=== PATIENT | female | born 1985 | race Caucasian/White ===

== ENCOUNTER 2017-11-19 12:18 | Inpatient (IN) | payer OTHER ==
[2017-11-19] VITALS (10 sets, daily range): BP systolic 132–152; BP diastolic 73–95
[~2017-11-19] VITALS: Ht 172.7 cm; Wt 116.7 kg
[2017-11-19] MEDS: MORPHINE SULFATE 2 MG/ML VIAL. IV PRN ×2 (13:48→19:23)
[2017-11-19] MEDS: IV NORMAL SALINE 1000ML BAG 1,000 ML IV SCH (13:48)
[2017-11-19] MEDS ORDERED: CETIRIZINE HCL 10 MG TABLET. PO STA (14:51)
--- NOTE | 2017-11-19 14:51 | PDOC ---
PULMONARY PROGRESS NOTES Vitals Vital Signs Date Time Temp Pulse Resp B/P (MAP) Pulse Ox O2 Delivery O2 Flow Rate FiO2 11/19/17 14:07 Room Air 11/19/17 14:00 98.4 86 18 150/90 (110) 98 98.4 Impression . MAST CELL MEDIATED ANGIOEDEMA SEE ORDERS THANKS RESP STATUS IS COMPENSATED PT FEELS BETTER SINCE RECEIVING TREATMENT IN ER AT [facility] SIRIA OLSON MD Nov 19, 2017 14:51
[2017-11-19] MEDS ORDERED: ALBUTEROL SULFATE 2.5 MG/3 ML NEBU. NEB PRN (15:00)
[2017-11-19] MEDS ORDERED: predniSONE 10 MG TABLET PO ONE (15:00)
[2017-11-19] MEDS: MORPHINE SULFATE 4 MG/ML VIAL. IV PRN ×2 (16:35→22:18)
[2017-11-19] MEDS ORDERED: FLUCONAZOLE 100 MG TABLET. PO ONE (17:30)
[2017-11-19] MEDS: CLINDAMYCIN INJ 300 MG in IV DEXTROSE 5% 50 ML IV SCH ×2 (17:32→21:49)
[2017-11-19] MEDS ORDERED: oxyCODONE/APAP 5/325 1 TAB TABLET PO PRN (20:45)
[2017-11-19] MEDS: FAMOTIDINE 20 MG TABLET. PO SCH (21:48)
--- NOTE | 2017-11-19 22:43 | CONS ---
DATE OF CONSULTATION: 11/19/2017 ATTENDING PHYSICIAN: Dr. Winkler. REASON FOR CONSULTATION: The patient is seen in pulmonary consultation for possible angioedema. HISTORY OF PRESENT ILLNESS: The patient is a 32-year-old who has a history of ALLERGIES TO EGGS, she has been avoiding eggs. She had a toothache several days ago, went to see her dentist. She apparently had an anesthetic injection. Then, she woke up this morning with a swollen tongue. She was having no difficulty breathing. She was able to swallow own saliva. She was seen in [facility] ER and was transferred to the Intensive Care Unit for further evaluation and management. The patient does not utilize any metered dose inhaler. She has never had asthma. She has had no formal allergy testing. She does not carry EpiPen. She does not utilize daily antihistamines. During my evaluation, she was able to stick out her tongue. She was able to complete full sentences. There was no upper airway stridor. The patient was not wheezing. She did not have an elevated respiratory rate. She actually states that she felt better. She had been given some Solu-Medrol, Benadryl, and Pepcid. PAST MEDICAL HISTORY: Otherwise just remarkable for EGG ALLERGIES. She does not take any antihypertensive medications. PAST SURGICAL HISTORY: None. ALLERGIES: EGGS. REVIEW OF SYSTEMS: As indicated above, otherwise a 10-point system was reviewed and negative. PHYSICAL EXAMINATION: VITAL SIGNS: Stable. O2 saturation was greater than 92% on room air. GENERAL: The patient was in no respiratory distress. HEENT: Eyes, the sclerae were nonicteric. NECK: Jugular venous distention was not elevated. No lymphadenopathy. No stridor, no audible wheezes. CHEST: Full expansion. LUNGS: Adequate airway flow with no wheezes, rales or rhonchi. CARDIOVASCULAR: Regular rate and rhythm with S1, S2, no S3. ABDOMEN: Soft, nontender, nondistended. EXTREMITIES: No clubbing, cyanosis or edema. NEUROLOGIC: The patient was awake, alert, following commands. A detailed neuro exam was not performed. SKIN: Revealed no evidence of any skin lesions or urticaria. LABORATORY DATA: From [facility] Emergency Room were reviewed. IMPRESSION: 1. Mast cell mediated angioedema, more than likely related to food allergy. 2. History of ALLERGIES TO EGGS. PLAN: 1. We will continue current support with steroids and antihistamines. 2. The patient will be given a prescription for EpiPen upon discharge. 3. Recommend daily Zyrtec. 4. The patient to follow up in the Allergy Clinic at [facility] once discharged. I do appreciate the privilege in sharing in the patient's care. SIRIA OLSON MD DR: LEEANN/spring JOB#: [id number] / [id number]
[2017-11-19] MEDS ORDERED: methylPREDNISolone SOD SUCC PF 125 MG/2 ML VIAL. IV ONE (23:00)
--- NOTE | 2017-11-19 23:48 | PDOC1 ---
History and Physical History of Present Illness History of Present Illness HPI: 32-year-old with tooth pain pw tongue swelling from OSH. Woke up this am with tongue. swelling which progressively got worse. Was in the dentists office when noted to be wheezing Noted to receive solumderol, PPI, and Benadryl Tx to ICU fro further eval. All to eggs only. Speaking full sentences wants to eat Current Medications Current Medications Current Medications Medications (Trade) Dose Ordered Sig/Ramy Start Time Stop Time Status Last Admin Dose Admin Albuterol Sulfate (Ventolin Neb Soln) 2.5 mg PRN Q2HR PRN 11/19/17 15:00 Cetirizine HCl (ZyrTEC) 10 mg 1X STAT 11/19/17 14:51 11/19/17 14:56 DC 11/19/17 17:33 10 MG Clindamycin Phosphate 300 mg/ Dextrose 52 ml @ 104 mls/hr Q8HRS 11/19/17 16:30 11/19/17 21:49 104 MLS/HR Famotidine (Pepcid) 20 mg BID 11/19/17 21:00 11/19/17 21:48 20 MG Fluconazole (Diflucan) 150 mg 1X ONCE 11/19/17 17:30 11/19/17 17:31 DC 11/19/17 17:33 150 MG Methylprednisolone Sodium Succinate (SOLU-Medrol 125MG VIAL) 62.5 mg 1X ONCE 11/19/17 23:00 11/19/17 23:01 DC 11/19/17 23:07 62.5 MG Morphine Sulfate (Morphine Sulfate) 4 mg PRN Q2HR PRN 11/19/17 16:15 11/19/17 22:18 4 MG Oxycodone/ Acetaminophen (Percocet 5/325) 2 tab PRN Q4HRS PRN 11/19/17 22:45 Prednisone (Prednisone) 20 mg DAILY 11/20/17 09:00 Sodium Chloride 1,000 ml @ 100 mls/hr Q10H 11/19/17 14:00 11/19/17 13:48 100 MLS/HR Allergies Allergies Allergies Coded Allergies Type Severity Reaction Last Updated Verified egg Allergy Intermediate Anaphylaxis 11/19/17 Yes ROS Review of System CONSTITUTIONAL: No fever or chills EYES: No recent changes SKIN: No rash or itching CARDIOVASCULAR: No chest pain, syncope, palpitations, or edema RESPIRATORY: No SOB or cough GASTROINTESTINAL: No nausea, vomiting or abdominal pain NEUROLOGICAL: No headaches or weakness ENDOCRINE: No cold or heat intolerance GENITOURINARY: No urgency or frequency of urination MUSCULOSKELETAL: No back pain or joint pain LYMPHATICS: No enlarged lymph nodes PSYCHIATRIC: No anxiety or depression Physical Exam Physical Exam GEN.: No apparent distress. Alert and oriented. HEENT: Head is normocephalic, atraumatic NECK: Supple. LUNGS: Clear to auscultation. HEART: RRR, S1, S2 present. Peripheral pulses intact ABDOMEN: Soft, nontender. Positive bowel sounds. EXTREMITIES: Without any cyanosis. NEUROLOGIC: Normal speech, normal tone PSYCHIATRIC: Normal affect, normal mood. SKIN: No ulcerations Vitals Vitals Vital Signs Date Time Temp Pulse Resp B/P (MAP) Pulse Ox O2 Delivery O2 Flow Rate FiO2 11/19/17 23:40 Room Air 11/19/17 23:00 98.3 100 16 151/73 (99) 99 98.3 VTE Prophylaxis Ordered VTE Prophylaxis Devices: No VTE Pharmacological Prophylaxi: No Assessment/Plan Assessment/Plan Tongue swelling Tooth pain Pulm c/s PPI, Steroids, Anbx, H2 nayeli ROSANNA PRYOR MD Nov 19, 2017 23:48
[2017-11-20] VITALS (12 sets, daily range): BP systolic 123–169; BP diastolic 70–97
[2017-11-20] MEDS: oxyCODONE/APAP 5/325 1 TAB TABLET PO PRN ×3 (00:46→09:41)
[2017-11-20] MEDS: IV NORMAL SALINE 1000ML BAG 1,000 ML IV SCH (00:46)
[2017-11-20] MEDS: CLINDAMYCIN INJ 300 MG in IV DEXTROSE 5% 50 ML IV SCH (05:32)
[2017-11-20] MEDS ORDERED: CETIRIZINE HCL 10 MG TABLET. PO SCH (09:00)
[2017-11-20] MEDS ORDERED: predniSONE 20 MG TABLET PO SCH (09:00)
[2017-11-20] MEDS: FAMOTIDINE 20 MG TABLET. PO SCH (09:15)
[2017-11-20] MEDS ORDERED: CLIN300C8 PO (11:43)
[2017-11-20] MEDS ORDERED: FAMO-63 PO (11:44)
[2017-11-20] MEDS ORDERED: HYDR-2758 PO (11:44)
[2017-11-20] MEDS ORDERED: DIPH25CA58 PO (11:45)
[2017-11-20] MEDS ORDERED: METH4TAB2 PO (11:45)
[2017-11-20] MEDS ORDERED: EPIPEN0.3 MG/0.3 IJ (11:45)
--- NOTE | 2017-11-20 12:27 | PDOC ---
PROGRESS NOTES Chief Complaint Chief Complaint Allergic reaction w/ angioedema of tongue tooth pain History of Present Illness History of Present Illness pt seen and examined pt complains of itchy, is alert and pleasant dw/ RN Vitals Vitals Vital Signs Date Time Temp Pulse Resp B/P (MAP) Pulse Ox O2 Delivery O2 Flow Rate FiO2 11/20/17 11:00 92 16 155/90 (111) 99 Room Air 11/20/17 08:00 98.0 98.0 Physical Exam General: Alert, Oriented X3, Cooperative Heart: Regular rate, Normal S1, Normal S2 Lungs: Clear Abdomen: Normal bowel sounds, Soft Extremities: No clubbing, No cyanosis Skin: No rashes, No breakdown Review of Systems Review of Systems CO hunger CO fatigue Assessment and Plan Assessmemt and Plan Allergic reaction w/ angioedema of tongue tooth pain Plan: pt approaching baseline discharge with steroids, PPI, Benadryl, and Clindamycin Prescribed epi. pen Comment Review of Relevant I have reviewed the following items gokul (where applicable) has been applied. Medications Current Medications Sodium Chloride 1,000 ml @ 100 mls/hr Q10H IV Last administered on 11/20/17at 00:46; Start 11/19/17 at 14:00; Stop 11/20/17 at 09:46; Status DC Morphine Sulfate (Morphine Sulfate) 2 mg PRN Q2HR PRN IV MODERATE PAIN Last administered on 11/19/17at 19:23; Start 11/19/17 at 13:45 Cetirizine HCl (ZyrTEC) 10 mg DAILY PO Last administered on 11/20/17 09:16; Start 11/20/17 at 09:00 Cetirizine HCl (ZyrTEC) 10 mg 1X STAT PO Last administered on 11/19/17at 17:33 ; Start 11/19/17 at 14:51; Stop 11/19/17 at 14:56; Status DC Prednisone (Prednisone) 30 mg 1X ONCE PO Last administered on 11/19/17 17:33 ; Start 11/19/17 at 15:00; Stop 11/19/17 at 15:01; Status DC Prednisone (Prednisone) 20 mg DAILY PO Last administered on 11/20/17at 09:15; Start 11/20/17 at 09:00 Famotidine (Pepcid) 20 mg BID PO Last administered on 9/30/18at 09:15; Start at 21:00 Albuterol Sulfate (Ventolin Neb Soln) 2.5 mg PRN Q2HR PRN NEB DYSPNEA; Start at 15:00 Morphine Sulfate (Morphine Sulfate) 4 mg PRN Q2HR PRN IV SEVERE PAIN Last administered on 11/19/17at 22:18; Start 11/19/17 at 16:15 Clindamycin Phosphate 300 mg/ Dextrose 52 ml @ 104 mls/hr Q8HRS IV Last administered on 11/20/17at 05:32; Start 11/19/17 at 16:30 Fluconazole (Diflucan) 150 mg 1X ONCE PO Last administered on 11/19/17at 17:33 ; Start 11/19/17 at 17:30; Stop 11/19/17 at 17:31; Status DC Oxycodone/ Acetaminophen (Percocet 5/325) 1 tab PRN Q4HRS PRN PO PAIN Last administered on 11/19/17at 20:50; Start 11/19/17 at 20:45; Stop 11/19/17 at 22:45 ; Status DC Oxycodone/ Acetaminophen (Percocet 5/325) 2 tab PRN Q4HRS PRN PO SEVERE PAIN Last administered on 11/20/17at 09:41; Start 11/19/17 at 22:45 Methylprednisolone Sodium Succinate (SOLU-Medrol 125MG VIAL) 62.5 mg 1X ONCE IV Last administered on 11/19/17at 23:07; Start 11/19/17 at 23:00; Stop at 23:01; Status DC Lactobacillus Rhamnosus (Culturelle) 1 cap BID PO ; Start 11/20/17 at 21:00 Active Scripts Active Reported Medrol (Methylprednisolone) 4 Mg Tab.ds.pk 1 Pkg PO UD Benadryl (Diphenhydramine Hcl) 25 Mg Capsule 25 Mg PO Q12HR 4 Days Epipen (Epinephrine) 0.3 Mg/0.3 Ml Auto.injct 0.3 Mg IJ Pepcid (Famotidine) 20 Mg Tablet 20 Mg PO BID Hydrocodone-Apap 5-325 (Hydrocodone Bit/Acetaminophen) 1 Each Tablet 1 Tab PO PRN Q6HRS PRN Clindamycin Hcl 300 Mg Capsule 1 Cap PO TID Clindamycin Hcl 300 Mg Capsule 1 Cap PO TID Vitals/I & O Vital Sign - Last 24 Hours 11/19/17 11/19/17 11/19/17 11/19/17 13:48 14:00 14:07 14:18 Temp 98.4 98.4 Pulse 86 Resp 18 18 18 B/P (MAP) 150/90 (110) Pulse Ox 98 O2 Delivery Room Air Room Air Room Air 11/19/17 11/19/17 11/19/17 11/19/17 15:00 16:00 16:00 16:35 Pulse 80 80 Resp 18 18 18 B/P (MAP) 132/80 (97) 149/95 (113) Pulse Ox 98 98 O2 Delivery Room Air Room Air Room Air Room Air 11/19/17 11/19/17 11/19/17 11/19/17 17:00 17:18 18:00 19:00 Temp 98.3 98.3 Pulse 80 80 106 Resp 18 18 16 B/P (MAP) 140/80 (100) 152/80 (104) 148/81 (103) Pulse Ox 98 99 98 99 O2 Delivery Room Air Room Air Room Air Room Air 11/19/17 11/19/17 11/19/17 11/19/17 19:23 19:23 19:53 20:00 Temp Pulse 98 Resp 16 16 B/P (MAP) 147/81 (103) Pulse Ox 100 99 99 O2 Delivery Room Air Room Air Room Air Room Air 11/19/17 11/19/17 11/19/17 11/19/17 20:50 21:00 21:50 22:00 Pulse 90 95 Resp 16 16 16 16 B/P (MAP) 151/86 (107) 144/93 (110) Pulse Ox 99 99 99 99 O2 Delivery Room Air Room Air Room Air Room Air 11/19/17 11/19/17 11/19/17 11/19/17 22:18 22:48 23:00 23:40 Temp 98.3 98.3 Pulse 100 Resp 16 16 16 B/P (MAP) 151/73 (99) Pulse Ox 99 99 99 O2 Delivery Room Air Room Air Room Air Room Air 11/20/17 11/20/17 11/20/17 11/20/17 00:00 00:46 01:00 01:46 Pulse 90 82 Resp 16 16 16 B/P (MAP) 161/97 (118) 142/81 (101) Pulse Ox 99 99 99 99 O2 Delivery Room Air Room Air Room Air 11/20/17 11/20/17 11/20/17 11/20/17 02:00 03:00 04:00 04:00 Temp 97.1 97.1 Pulse 72 66 93 Resp 18 18 18 B/P (MAP) 139/72 (94) 123/77 (92) 147/79 (101) Pulse Ox 99 99 99 O2 Delivery Room Air Room Air Room Air Room Air 11/20/17 11/20/17 11/20/17 11/20/17 05:00 05:32 06:00 07:00 Pulse 88 79 77 Resp 16 16 16 B/P (MAP) 141/78 (99) 143/70 (94) 138/70 (92) Pulse Ox 99 99 99 99 O2 Delivery Room Air Room Air Room Air Room Air 11/20/17 11/20/17 11/20/17 11/20/17 08:00 08:00 09:00 09:41 Temp 98.0 98.0 Pulse 98 92 Resp 16 16 18 B/P (MAP) 155/83 (107) 169/85 (113) Pulse Ox 99 99 O2 Delivery Room Air Room Air Room Air Room Air 11/20/17 11/20/17 11/20/17 10:00 10:41 11:00 Pulse 92 92 Resp 16 18 16 B/P (MAP) 155/90 (111) 155/90 (111) Pulse Ox 99 99 O2 Delivery Room Air Room Air Room Air Intake and Output 11/19/17 11/19/17 11/20/17 15:00 23:00 07:00 Intake Total 0 ml 1082 ml 2859 ml Output Total 600 ml Balance 0 ml 482 ml 2859 ml DEDE LEDESMA III DO Nov 20, 2017 12:27
[2017-11-20] MEDS ORDERED: LACTOBACILLUS RHAMNOSUS GG 1 CAPSULE. PO SCH (21:00)
--- NOTE | 2017-11-21 10:38 | DS ---
DATE OF DISCHARGE: 11/20/2017 ADMISSION DIAGNOSIS: Angioedema secondary to Novocain. DISCHARGE DIAGNOSIS: Resolving angioedema. HOSPITAL COURSE: The patient is a pleasant 32-year-old female who presented with angioedema. She had a chipped tooth, went to the dentist and after he injected her, she began developing a swollen tongue and had difficulty breathing. She was admitted and we gave her IV steroids, proton pump inhibitors and antihistamines. I saw her yesterday morning and she was doing well. We discharged on p.o. steroid taper, antihistamines and proton pump inhibitors and clindamycin to cover her chipped tooth. DISPOSITION: Home. ACTIVITY: As tolerated. DIET: Low sodium. MEDICATIONS: Please see the MRAD. TOTAL TIME ON DISCHARGE: Thirty-one minutes. DEDE LEDESMA DO DR: PRISCILLA/spring JOB#: [id number] / [id number]
== END 2017-11-20 14:03 | disposition home or self-care (01) | DRG 916 ==
LOC: 1 WEST ICU 13:25
PROVIDERS: ADMIT Hospitalist; ATTEND Hospitalist
DX: T78.3XXA Angioneurotic edema, initial encounter (principal); K08.89 Other specified disorders of teeth and supporting structures; T41.3X5A Adverse effect of local anesthetics, initial encounter; Y84.8 Other medical procedures as the cause of abnormal reaction of the patient, or of later complication, without mention of misadventure at the time of the procedure; Y92.89 Other specified places as the place of occurrence of the external cause; Z88.8 Allergy status to other drugs, medicaments and biological substances; Z91.012 Allergy to eggs; Y92.9 Unspecified place or not applicable
CPT/HCPCS: 94760; J2270; J2930; J3490; J7030; J7512